=== PATIENT | female | born 1985 | race Caucasian/White ===

== ENCOUNTER 2018-04-01 04:58 | Day surgery (SDC) | payer OTHER ==
[2018-03-31 14:21] VITALS: BMI 20.6
--- NOTE | 2018-04-01 11:52 | HP ---
History & Physical Update - History History: No Change - Physical Physical: No Change - Assessment Assessment: No Change - Plan Plan: No Change Currently as noted:: Missed Ab. Plan for suction, D&C for surgical Tx of missed Ab.
[2018-04-01] MEDS ORDERED: LIDOCAINE HCL/PF 2% SDV 5ML VIAL ONE (12:08)
[2018-04-01] MEDS ORDERED: KETOROLAC TROMETHAMINE 30 MG/1 ML VIAL ONE (12:08)
[2018-04-01] MEDS ORDERED: DEXAMETHASONE SOD PHOSPHATE 4 MG/1 ML VIAL ONE (12:08)
[2018-04-01] MEDS ORDERED: PROPOFOL 20 ML ONE (12:09)
[2018-04-01] MEDS ORDERED: MIDAZOLAM HCL 2 MG/2 ML SINGLE DOSE VIAL ONE ×2 (12:09)
[2018-04-01] MEDS ORDERED: PROMETHAZINE HCL 25 MG/1 ML VIAL IVPB PRN (12:36)
[2018-04-01] MEDS ORDERED: oxyCODONE HCL 5 MG TABLET PO PRN (12:36)
[2018-04-01] MEDS ORDERED: ONDANSETRON 4 MG/2 ML VIAL IVPUSH PRN (12:36)
--- NOTE | 2018-04-01 13:08 | OP ---
Operative Note - Note: Operative Date: 04/01/18 Pre-Operative Diagnosis: Missed Ab Operation: Suction, D&C, surgical Tx of missed Ab Findings: POC Post-Operative Diagnosis: Same as Pre-op Surgeon: Moe Nelson Anesthesiologist/EXAMINING OFFICER: Jean Carlos Espinoza Anesthesia: General Specimens Removed: POC Estimated Blood Loss (mls): 30 Blood Volume Replaced (mls): 0 Fluid Volume Replaced (mls): 400 Operative Report Dictated: Yes
[2018-04-01] MEDS ORDERED: RHO(D) IMMUNE GLOBULIN 1,500 UNIT DISP.SYRIN IM ONE (13:28)
--- NOTE | 2018-04-01 13:42 | OP ---
DATE OF OPERATION: 04/01/2018 PREOPERATIVE DIAGNOSIS: Missed . POSTOPERATIVE DIAGNOSIS: Missed . OPERATION: Suction dilatation and curettage, surgical treatment of missed . SURGEON: Erica Sheth MD ANESTHESIOLOGIST: Jean Carlos Espinoza MD ANESTHESIA: General. COMPLICATIONS: None. PATHOLOGY: Products of conception. FINDINGS: Small anteverted uterus consistent with approximately an 8-week gestation. Products of conception were noted on suction curettage. No retained products of conception were noted at the end of the procedure. ESTIMATED BLOOD LOSS: 30 mL. INTRAVENOUS FLUIDS: 400 mL. PROCEDURE: The patient was met preoperatively. Risks, benefits, and alternatives were discussed in details. All questions were answered. The patient was then brought to the OR with IV running. She was placed on the surgical table in a supine position. General anesthesia was achieved without difficulty. The patient was then placed in a dorsal lithotomy position using adjustable Laci stirrups. She was examined under anesthesia with the findings as described above. The patient was then prepped and draped in the usual sterile fashion. A time-out procedure was conducted as per standard protocol. A sterile speculum was introduced inside the vagina. The cervix was grasped with a single-tooth tenaculum. The cervical os was dilated to accommodate a size 25 dilator. An 8-mm suction curette was introduced inside the uterine cavity. Products of conception were evacuated. No retained products of conception were noted at the end of the procedure. The instruments were removed from the patient. Good hemostasis was noted. Sponge, lap, and needle counts were correct. The instrument counts were correct. The patient was then returned to supine position. She was transferred to the recovery room awake and in stable condition. ERICA SHETH M.D. [id number]
[2018-04-01 15:28] VITALS: TEMP 98
[2018-04-01] MEDS ORDERED: ACETAMINOPHEN 325 MG TABLET (FP) ONE (15:33)
[2018-04-01] MEDS ORDERED: ACETAMINOPHEN 325 MG TABLET (FP) PO ONE (15:36)
[2018-04-01 16:48] VITALS: BP 94/50; PULSE 63
--- NOTE | 2018-04-04 17:11 | PATH ---
Surgical Pathology Report Patient Name: DELORES PLATA Med. Rec. #: [id number] /Age/Gender: 1985 (Age: 33) / F Account: [id number] Location: [facility] Taken: 04/01/2018 Received: 04/01/2018 Reported: 04/04/2018 Physicians: Moe Nelson M.D. Specimen(s) Received PRODUCTS OF CONCEPTION Clinical History Missed Final Diagnosis PRODUCTS OF CONCEPTION, DILATION AND CURETTAGE: IMMATURE CHORIONIC VILLI CONSISTENT WITH PRODUCTS OF CONCEPTION. Electronically Signed Edith Lozoya M.D. Gross Description Received in formalin labeled "products of conception," is a 7.5 x 4.5 x 1.0 cm aggregate of vogel red soft tissue fragments. Villous tissue is identified. No definite somatic tissue is identified. A territory representative portion is submitted in one cassette. /04/01/2018 saudi/04/01/2018
== END 2018-04-01 16:30 | disposition home or self-care (01) ==
LOC: JASU-SURG 04:58
PROVIDERS: ATTEND Obstetrics & Gynecology
PROC: 10D17ZZ Extraction of Products of Conception, Retained, Via Natural or Artificial Opening (ICD-10-PCS; principal; 2018-04-01 12:00)
DX: O02.1 Missed abortion (principal)
CPT/HCPCS: 86999; 88305-TC; 94760; J1561

== ENCOUNTER 2019-01-23 17:30 | Inpatient (IN) | payer OTHER ==
[2019-01-23] MEDS: DEXTROSE 5%-LACTATED RINGERS 1,000 ML IV SCH (17:50)
[2019-01-23 18:15] VITALS: BMI 26.2
[2019-01-23] MEDS ORDERED: PROMETHAZINE HCL 25 MG/1 ML VIAL ONE (18:17)
[2019-01-23] MEDS ORDERED: BUTORPHANOL TARTRATE 1 MG/ML VIAL ONE ×2 (18:17)
[2019-01-23] MEDS ORDERED: BUTORPHANOL TARTRATE 1 MG/ML VIAL IVPB ONE (18:21)
[2019-01-23] MEDS ORDERED: PROMETHAZINE HCL 25 MG/1 ML VIAL IVPUSH ONE (18:21)
--- NOTE | 2019-01-23 18:30 | HP ---
Past Medical History - Primary Care Physician PCP:: Moe Nelson - Admission Chief Complaint: 33yo P0 with at EGA 39w2d admitted with spontaneous early labor. History of Present Illness: complicated by: Smoking ADHD, Anxiety, depression (moderate) History Source: Patient, Medical Record Limitations to Obtaining History: No Limitations - Past Medical History MARKETING OPERATIONS CONSULTANT: No: Alzheimer's, CVA, Dementia, Migraine, Multiple Sclerosis, Peripheral Neuropathy, Parkinson's, Seizure, Syncope, TIA, Vertigo, Other Cardiovascular: No: AFIB, Aneurysm, Aortic Insufficiency, Aortic Stenosis, CAD, CHF, Deep Vein Thrombosis, HTN, Hyperlipdemia, [place], Mitral Insufficiency, Mitral Stenosis, Murmur, Pulmonary Hypertension, Other Pulmonary: No: Asthma, Bronchitis, Cancer, COPD, O2 Dependent, Pneumonia, Previously Intubated, Pulmonary Embolus, Pulmonary Fibrosis, Sleep Apnea, Other Gastrointestinal: No: Ascites, Cancer, Constipation, Crohn's Disease, Diverticulitis, Diverticulosis, Esophageal Varices, Gastritis, GERD, GI Bleed, Hemorrhoids, Hiatal Hernia, Inflamatory Bowel Disease, Irritable Bowel Disease, Pancreatitis, Peptic Ulcer Disease, Ulcerative Colitis, Other Hepatobiliary: Yes: Other (pancreatitis in 2003) Renal/: No: Renal Failure, Renal Inusuff, BPH, Cancer, Hematuria, Hemodialysis , Neurogenic Bladder, Renal Calculi, UTI, Other ...: 6 ...Para: 0 ...Term: 0 ...: 0 ...Spon : 1 ...Induced : 4 ... Weeks Gestation by Dates: 39.2 ...EDC by Sono: 01/27/19 Heme/Onc: No: Anemia, B12 Deficiency, Bleeding Disorder, Cancer, Current Chemotherapy, Current Radiation Therapy, Hemochromatosis, Hypercoaguable State, Myeloproliferative Synd, Sickle Cell Disease, Sickle Cell Trait, Thrombocytopenia, Other Infectious Disease: No: AIDS, C-Diff, Herpes Zoster, HIV, MRSA, STD's, Tuberculosis, VREF, Other Psych: Yes: Anxiety, Depression, Other (ADHD) Musculoskeletal: No: Bursitis, Chronic low back pain, Hemiparesis, Hemiplegia, Osteoarthritis, Paraplegia, Other Rheumatology: No: Fibromyalgia, Gout, Lupus, Rheumatoid Arthritis, Sarcoidosis, Vasculitis, Other ENT: No: Allergic Rhinitis, Sinusitis, Other Endocrine: No: Isanti's Disease, Soraida's Disease, Diabetes Insipidus, Diabetes Mellitus, Hyperparathyroidism, Hyperthyroidism, Hypothyroidism, Osteopenia, SIADH, Other Dermatology: Yes: Basal Cell (on forehead) - Past Surgical History Hx Myomectomy: No Hx Transabdominal Cerclage: No Additional Surgical History: Breast implants, nose surgery, liposuction, right eyelid surgery, D&C for missed Ab. 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 History of Recent Travel: No Home Medications - Allergies Allergies/Adverse Reactions: Allergies Allergy/AdvReac Type Severity Reaction Status Date / Time Penicillins Allergy Severe Swelling Verified 01/23/19 18:29 - Home Medications Home Medications: Ambulatory Orders Dextroamphetamine/Amphetamine [Adderall 7.5 mg Tablet] 7.5 mg PO DAILY 03/31/18 metroNIDAZOLE [Flagyl -] 500 mg PO BID #14 tablet 04/01/18 Adderall 10 mg Tablet 10 mg PO DAILY 01/23/19 Tablet 1 tab PO DAILY 01/23/19 Family Medical History Family Hx Cancer: Grandmother (maternal) (ovarian ca at age 70), Mother (breast ca at 34) Review of Systems - Review of Systems Constitutional: reports: Other (labor pain) Eyes: reports: No Symptoms HENT: reports: No Symptoms Neck: reports: No Symptoms Cardiovascular: reports: No Symptoms Respiratory: reports: No Symptoms Gastrointestinal: reports: No Symptoms Genitourinary: reports: No Symptoms Breasts: reports: No Symptoms Reported Musculoskeletal: reports: No Symptoms Integumentary: reports: No Symptoms Neurological: reports: No Symptoms Endocrine: reports: No Symptoms Hematology/Lymphatic: reports: No Symptoms Psychiatric: reports: No Symptoms Pain Intensity: 7 Physical Exam - Maternity Vital Signs: Vital Signs Temperature 98.2 F 01/23/19 18:07 Pulse Rate 90 01/23/19 18:07 Respiratory Rate 18 01/23/19 18:07 Blood Pressure 127/78 01/23/19 18:07 O2 Sat by Pulse Oximetry (%) Constitutional: Yes: Well Nourished, No Distress, Calm Eyes: Yes: WNL, Conjunctiva Clear, EOM Intact HENT: Yes: WNL, Atraumatic, Normocephalic Neck: Yes: WNL, Supple, Trachea Midline Cardiovascular: Yes: WNL, Regular Rate and Rhythm Lungs: Clear to auscultation, Normal air movement Breast(s): Yes: WNL - Abdominal Exam/OB Fundal Height: 39 Number of Fetuses: Single Presentation: Vertex Contractions: Yes Regularity: Irregular Intensity: Moderate Monitor Mode: External Heart Rate (range): 140 Heart Rate Location: Midline Category: I Accelerations: Uniform Decelerations: None - Vaginal Exam/OB Vaginal Bleediing: No Speculum Exam: No Dilatation (cm): 2 Effacement (%): 90 Amniotic Membrane Status: Intact Presentation: Vertex/Position Station: -1 (Gynecoid pelvimetry) - Physical Exam Musculoskeletal: Yes: WNL Extremities: Yes: WNL Edema: No Integumentary: Yes: WNL Deep Tendon Reflex Grade: Normal +2 ...Motor Strength: WNL Psychiatric: Yes: WNL, Alert, Oriented Hemorrhage Risk Assessment - Risk Factors Medium Risk Factors: Yes: None High Risk Factors: Yes: None Risk Score: 1 Risk Level: Medium Risk Imaging - Results Ultrasound: Report Reviewed Assessment/Plan 33yo P0 with at EGA 39w2d admitted with spontaneous early labor. Pt is in latent labor. Fetus with Category I tracing and does not need intervention. Pt requested pain mgt. options discussed. Pt prefers epidural.
[2019-01-23] MEDS ORDERED: ELECTROLYTE-148 SOLN 1,000 ML IV SCH (19:15)
[2019-01-23 20:11] LABS: BASO % 0.4 % (0-2.0); EOS % 0.4 % (0-4.5); HEMATOCRIT 30.1 % (32.4-45.2); HEMOGLOBIN 9.7 GM/dL (10.7-15.3); LYMPH % 11.3 % (8-40); MCH 29.5 pg (25.7-33.7); MCHC 32.3 g/dl (32.0-36.0); MEAN CELL VOLUME 91.3 fl (80-96); MEAN PLT VOLUME 9.7 fl (7.5-11.1); MONO % 5.1 % (3.8-10.2); NEUT % 82.8 % (42.8-82.8); PLATELET COUNT 306 K/MM3 (134-434); WHITE BLOOD COUNT 15.6 K/mm3 (4.0-10.0)
[2019-01-23 20:24] LABS: INR 0.95 (0.83-1.09); PROTHROMBIN TIME (PATIENT) 11.2 SEC (9.7-13.0)
[2019-01-23 20:33] LABS: BLOOD UREA NITROGEN 9.6 mg/dL (7-18); CALCIUM 9.1 mg/dL (8.5-10.1); CREATININE 0.6 mg/dL (0.55-1.3); POTASSIUM 4.7 mmol/L (3.5-5.1)
[2019-01-23] MEDS ORDERED: FENTANYL/BUPIVACAINE/NS/PF - PCEA - 50 ML DISP.SYRIN EP ONE (20:38)
[2019-01-23] MEDS ORDERED: NALOXONE HCL 0.4 MG/ML VIAL IVPUSH PRN (20:55)
[2019-01-23] MEDS: ELECTROLYTE-148 SOLN 1,000 ML IV SCH (21:00)
[2019-01-23] MEDS ORDERED: LIDO 2%/EPI 1:200000 PRESRVFRE (20 ML SDVIAL) ONE ×2 (21:01→21:04)
[2019-01-23] MEDS: FENTANYL/BUPIVACAINE/NS/PF - PCEA - 50 ML DISP.SYRIN EP SCH (21:15)
[2019-01-23] MEDS ORDERED: OXYTOCIN 30 UNITS in 0.9% NS 30 UNIT/500 ML INFUS.BAG IVPB ONE (22:23)
[2019-01-23] MEDS: OXYTOCIN 30 UNITS in 0.9% NS 30 UNIT/500 ML INFUS.BAG IVPB SCH (22:30)
--- NOTE | 2019-01-23 22:33 | PN ---
Ante-Partal Exam - Subjective Subjective: pt w/o complaints. She is s/p epidural. Vital Signs: Vital Signs Temperature 98.2 F 01/23/19 18:07 Pulse Rate 85 01/23/19 22:15 Respiratory Rate 20 01/23/19 22:15 Blood Pressure 107/66 01/23/19 22:15 O2 Sat by Pulse Oximetry (%) 100 01/23/19 21:30 Bleeding: No Headache: No Visual changes: No Right upper quadrant pain: No Pain (scale 1-10): 0 - Contractions Contractions: Yes (q5min) Regularity: Regular Intensity: Mild/Mod Monitor Mode: External - Exam during Labor Heart Rate: 140 Variability: Moderate Heart Rate Location: Midline Category: I Monitor Accelerations: Present Monitor Decelerations: None Exam: Vaginal Dilatation (cm): 1.5 Effacement (%): 80 Amniotic Membrane Status: Intact Nitrazine Test: Positive Amniotic Fluid: Clear Presentation: Vertex Station: -1 Remarks: Gynecoid pelvimetry. EFW ~7lbs - Intrapartum Hemorrhage Risk Medium Risk Factors: None High Risk Factors: None Risk Score: 0 Risk Level: Low Risk - Assessment/Plan Assessment/Plan: Latent labor. Fetus with Category I tracing. Plan to augment ctx with pitocin.
[2019-01-24] MEDS: FENTANYL/BUPIVACAINE/NS/PF - PCEA - 50 ML DISP.SYRIN EP SCH ×2 (02:00→05:15)
[2019-01-24] MEDS ORDERED: FENTANYL/BUPIVACAINE/NS/PF - PCEA - 50 ML DISP.SYRIN EP ONE ×3 (02:03→08:46)
[2019-01-24] MEDS: ELECTROLYTE-148 SOLN 1,000 ML IV SCH (05:00)
[2019-01-24] MEDS ORDERED: LIDO 2%/EPI 1:200000 PRESRVFRE (20 ML SDVIAL) ONE (05:49)
--- NOTE | 2019-01-24 07:33 | PN ---
Ante-Partal Exam - Subjective Subjective: Pt w/o complaints. Vital Signs: Vital Signs Temperature 98.8 F 01/24/19 07:00 Pulse Rate 78 01/24/19 07:15 Respiratory Rate 20 01/24/19 07:15 Blood Pressure 95/49 L 01/24/19 07:15 O2 Sat by Pulse Oximetry (%) 98 01/24/19 07:15 Bleeding: No Headache: No Visual changes: No Right upper quadrant pain: No Pain (scale 1-10): 0 - Contractions Contractions: No Regularity: Regular Intensity: Moderate Monitor Mode: External - Exam during Labor Heart Rate: 145 Variability: Moderate Heart Rate Location: Midline Category: I Monitor Accelerations: Absent Monitor Decelerations: None Exam: Vaginal Dilatation (cm): 8.5 Effacement (%): 90 Amniotic Membrane Status: Leaking Amniotic Fluid: Clear Presentation: Vertex Station: +1 - Intrapartum Hemorrhage Risk Medium Risk Factors: None High Risk Factors: None Risk Score: 0 Risk Level: Low Risk - Assessment/Plan Assessment/Plan: Progressing in active phase. Fetus with Category I tracing. Continue monitoring labor progress.
[2019-01-24] MEDS ORDERED: BUPIVACAINE HCL/PF 2.5 MG/ML - 30 ML VIAL IJ ONE (08:09)
[2019-01-24] MEDS ORDERED: OXYTOCIN 20 UNITS in 0.9% NS 20 UNIT/1,000 ML INFUS.BAG IV ONE ×2 (08:29→11:37)
[2019-01-24] MEDS ORDERED: WITCH HAZEL 50% (TUCKS) 40 PAD/JAR PAD TP PRN (10:24)
[2019-01-24] MEDS ORDERED: BENZOCAINE 20% 57 GM BOTTLE TP PRN (10:24)
[2019-01-24] MEDS ORDERED: BENZOCAINE 28 GM HEMORRHOIDAL OINTMENT TP PRN (10:24)
[2019-01-24] MEDS ORDERED: BISACODYL 10 MG SUPP.RECT RC PRN (10:24)
[2019-01-24] MEDS ORDERED: METHYLERGONOVINE MALEATE 0.2 MG/1 ML AMP IM PRN (10:24)
[2019-01-24] MEDS: D5W-LR W/ 20 UNITS OXYTOCIN 20 UNIT/1,000 ML INFUS.BAG IV SCH ×2 (10:26→12:01)
[2019-01-24] MEDS: ACETAMINOPHEN 325 MG TABLET (FP) PO PRN (10:40)
[2019-01-24] MEDS: IBUPROFEN 600 MG TABLET (FP) PO PRN (10:40)
[2019-01-24] MEDS ORDERED: CITRIC ACID/SODIUM CITRATE 30 ML UNIT-DOSE CUP PO ONE (14:30)
[2019-01-24] MEDS ORDERED: PANTOPRAZOLE 20 MG TABLET (FP) PO PRN (14:40)
[2019-01-24] MEDS: FERROUS SO4 325 MG TABLET (FP) PO SCH (21:42)
[2019-01-25] MEDS: ACETAMINOPHEN 325 MG TABLET (FP) PO PRN ×3 (01:17→16:02)
[2019-01-25] MEDS: IBUPROFEN 600 MG TABLET (FP) PO PRN ×3 (01:18→15:59)
--- NOTE | 2019-01-25 07:45 | PN ---
Progress Note (short form) - Note Progress Note: ppd1 , doing well, no excess vaginal bleeding CBC, BMP 01/23/19 19:45 01/23/19 19:45 Last Vital Signs Temp Pulse Resp BP Pulse Ox 98.2 F 81 18 125/77 99 01/25/19 05:45 01/25/19 05:45 01/25/19 05:45 01/25/19 05:45 01/24/19 12:15 abdomen soft, non tender ,uterus firm, non tender lochia mild no calf tenderness plan ambulate , cbc plan for d/c home in am
[2019-01-25 08:44] LABS: BASO % 0.9 % (0-2.0); EOS % 1.4 % (0-4.5); HEMOGLOBIN 8.2 GM/dL (10.7-15.3); LYMPH % 22.1 % (8-40); MCH 29.6 pg (25.7-33.7); MCHC 32.8 g/dl (32.0-36.0); MEAN CELL VOLUME 90.3 fl (80-96); NEUT % 69.6 % (42.8-82.8); PLATELET COUNT 255 K/MM3 (134-434); RBC 2.77 M/mm3 (3.60-5.2); RDW 13.8 % (11.6-15.6); WHITE BLOOD COUNT 14.4 K/mm3 (4.0-10.0)
[2019-01-25] MEDS: PRENATAL VITAMINS W/ FOLIC ACID TABLET (FP) PO SCH (09:57)
[2019-01-25] MEDS: FERROUS SO4 325 MG TABLET (FP) PO SCH ×2 (09:57→21:21)
--- NOTE | 2019-01-25 16:35 | PN ---
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
[2019-01-25] MEDS: DEXTROSE 5%-LACTATED RINGERS 1,000 ML IV SCH (20:47)
[2019-01-25] MEDS: ELECTROLYTE-148 SOLN 1,000 ML IV SCH (20:47)
[2019-01-25] MEDS: OXYTOCIN 30 UNITS in 0.9% NS 30 UNIT/500 ML INFUS.BAG IVPB SCH (20:48)
[2019-01-25] MEDS ORDERED: SENNOSIDES/DOCUSATE COMBO (SENNA PLUS) TABLET (UD) PO PRN (22:00)
[2019-01-26] MEDS: ACETAMINOPHEN 325 MG TABLET (FP) PO PRN (07:11)
[2019-01-26] MEDS: IBUPROFEN 600 MG TABLET (FP) PO PRN (07:11)
--- NOTE | 2019-01-26 07:52 | PN ---
Post Progress Note - Subjective Subjective: Patient without acute complaints. Reports tolerating oral intake without nausea or vomiting. Ambulating without dizziness. Denies fevers or chills. Pain well controlled with oral pain medication. Passing flatus. Post Day: 1 Type of Delivery: Vital Signs: Vital Signs Temperature 97.8 F 01/25/19 21:04 Pulse Rate 63 01/25/19 21:04 Respiratory Rate 18 01/25/19 21:04 Blood Pressure 129/69 01/25/19 21:04 O2 Sat by Pulse Oximetry (%) 99 01/24/19 12:15 Breast Exam: Yes: Soft Uterus: Yes: Fundus Firm Incision: Yes: Dressing dry and intact Abdomen/GI: Yes: Abdomen soft Lochia: Yes: Rubra - Labs Labs: CBC WBC 14.4 K/mm3 (4.0-10.0) H 01/25/19 08:18 RBC 2.77 M/mm3 (3.60-5.2) L 01/25/19 08:18 Hgb 8.2 GM/dL (10.7-15.3) L 01/25/19 08:18 Hct 25.0 % (32.4-45.2) L D 01/25/19 08:18 MCV 90.3 fl (80-96) 01/25/19 08:18 MCH 29.6 pg (25.7-33.7) 01/25/19 08:18 MCHC 32.8 g/dl (32.0-36.0) 01/25/19 08:18 RDW 13.8 % (11.6-15.6) 01/25/19 08:18 Plt Count 255 K/MM3 (134-434) 01/25/19 08:18 MPV 10.0 fl (7.5-11.1) 01/25/19 08:18 Absolute Neuts (auto) 10.0 K/mm3 (1.5-8.0) H 01/25/19 08:18 Neutrophils % 69.6 % (42.8-82.8) 01/25/19 08:18 Lymphocytes % 22.1 % (8-40) D 01/25/19 08:18 Monocytes % 6.0 % (3.8-10.2) 01/25/19 08:18 Eosinophils % 1.4 % (0-4.5) D 01/25/19 08:18 Basophils % 0.9 % (0-2.0) 01/25/19 08:18 Nucleated RBC % 0 % (0-0) 01/25/19 08:18 Assessment/Plan 33yo P1 now s/p VSS, Afebrile Doing well h/h stable d/c home NPV x 6wks RTO 5wks
--- NOTE | 2019-01-26 08:30 | DS ---
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 Vital Signs: Vital Signs Temperature 97.8 F 01/25/19 21:04 Pulse Rate 63 01/25/19 21:04 Respiratory Rate 18 01/25/19 21:04 Blood Pressure 129/69 01/25/19 21:04 O2 Sat by Pulse Oximetry (%) 99 01/24/19 12:15 Constitutional: Yes: Well Nourished, No Distress, Calm Eyes: Yes: WNL, Conjunctiva Clear, EOM Intact HENT: Yes: WNL, Atraumatic, Normocephalic Neck: Yes: WNL, Supple, Trachea Midline Cardiovascular: Yes: WNL, Regular Rate and Rhythm Respiratory: Yes: WNL, Regular, CTA Bilaterally Gastrointestinal: Yes: WNL, Normal Bowel Sounds, Soft Renal/: Yes: WNL Pelvis: Yes: WNL External Genitalia: Yes: Normal Internal Exam Deferred: Yes Vaginal Exam: Yes: Normal ....Post : Yes: Uterus firm, Uterus non-tender Breast(s): Yes: WNL Musculoskeletal: Yes: WNL Extremities: Yes: WNL Edema: No Integumentary: Yes: WNL Neurological: Yes: WNL, Alert, Oriented ...Motor Strength: WNL Psychiatric: Yes: WNL, Alert, Oriented Labs: CBC, BMP 01/25/19 08:18 01/23/19 19:45 Delivery - Delivery Vaginal Delivery: No Problems, Spontaneous Type of Anesthesia: Epidural Episiotomy/Laceration: None EBL (cc): 300 Delivery, Single - Stages of Labor Date 1st Stage Initiatied: 01/23/19 Time 1st Stage Initiated: 15:00 Date 2nd Stage Initiated: 01/24/19 Time 2nd Stage Initiated: 09:10 Date of Delivery: 01/24/19 Time of Delivery: 10:18 Time Placenta Delivered: 10:26 Placenta: Yes: Spontaneous, Normal Configuration - 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 of Infant 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 You may walk unlimited quinten of and climb stairs. You may resume driving the car when you feel safe and comfortable behind the wheel. No sexual activity as instructed. Wound care If you have a bandage, leave it on, and keep dry for 48-72 hours. After that time discard the outer bandage. If they are tapes on the skin under the out of bandage leave them in place. They will peel off in the next 7 to 10 days. Do Not Peel them off. You may shower the day after surgery. If there are tapes present on the skin, you may shower over them. Diet There are no dietary restrictions. Eat healthy, high-fiber foods. Drink 6 to 8 glasses of liquid each day. This will assist in keeping your bowels are regular. Pain management You may take Tylenol or acetaminophen or Ibuprofen (for example, Motrin, Advil etc.) from my pain prescription medication is ordered should be taken as prescribed for moderate to severe pain. Call MD for any of the following: Severe pain not relieved by medication Fever of 101 or higher Excessive bleeding or drainage on dressing Inability to urinate Condition: Good - Instructions Diet, Activity, Other Instructions: Physical activity Resume your normal everyday activity as tolerated no heavy lifting or exercise until seen by your surgeon. You may walk unlimited quinten of and climb stairs. You may resume driving the car when you feel safe and comfortable behind the wheel. No sexual activity as instructed. Wound care If you have a bandage, leave it on, and keep dry for 48-72 hours. After that time discard the outer bandage. If they are tapes on the skin under the out of bandage leave them in place. They will peel off in the next 7 to 10 days. Do Not Peel them off. You may shower the day after surgery. If there are tapes present on the skin, you may shower over them. Diet There are no dietary restrictions. Eat healthy, high-fiber foods. Drink 6 to 8 glasses of liquid each day. This will assist in keeping your bowels are regular. Pain management You may take Tylenol or acetaminophen or Ibuprofen (for example, Motrin, Advil etc.) from my pain prescription medication is ordered should be taken as prescribed for moderate to severe pain. Call MD for any of the following: Severe pain not relieved by medication Fever of 101 or higher Excessive bleeding or drainage on dressing Inability to urinate Referrals: Moe Nelson MD [Staff Physician] - Disposition: HOME - Home Medications Comprehensive Discharge Medication List: Ambulatory Orders Dextroamphetamine/Amphetamine [Adderall 7.5 mg Tablet] 7.5 mg PO DAILY 03/31/18 metroNIDAZOLE [Flagyl -] 500 mg PO BID #14 tablet 04/01/18 Adderall 10 mg Tablet 10 mg PO DAILY 01/23/19 Tablet 1 tab PO DAILY 01/23/19
[2019-01-26 08:58] VITALS: BP 123/84; PULSE 80; TEMP 97.2
[2019-01-26] MEDS: PRENATAL VITAMINS W/ FOLIC ACID TABLET (FP) PO SCH (09:14)
[2019-01-26] MEDS: FERROUS SO4 325 MG TABLET (FP) PO SCH (09:14)
== END 2019-01-26 10:30 | disposition home or self-care (01) | DRG 807 ==
LOC: JLDR 17:30 → J3W 01-24 12:50
PROVIDERS: ADMIT Obstetrics & Gynecology; ATTEND Obstetrics & Gynecology
PROC: 10E0XZZ Delivery of Products of Conception, External Approach (ICD-10-PCS; principal; 2019-01-24)
DX: O99.344 Other mental disorders complicating childbirth (principal); Z37.0 Single live birth; F41.8 Other specified anxiety disorders; O99.334 Smoking (tobacco) complicating childbirth; F17.210 Nicotine dependence, cigarettes, uncomplicated; Z3A.39 39 weeks gestation of pregnancy; F90.1 Attention-deficit hyperactivity disorder, predominantly hyperactive type
CPT/HCPCS: 36415; 59409; 80048; 85025; 85461; 85610; 85730; 86593; 86850; 86870; 86900; 86901; 86902; 86999